=== PATIENT | female | born 1995 | race Caucasian/White ===

== ENCOUNTER 2016-06-12 15:23 | Emergency (ER) | payer OTHER ==
[~2016-06-12] VITALS: Ht 170.2 cm; Wt 60.5 kg
[2016-06-12 15:28] VITALS: TEMP 98
[2016-06-12 17:40] LABS: BASO # 0.1 (0.0-0.2); BASO % 0.4 % (0.0-2.0); GRAN # 20.2 (1.4-6.5); GRAN % 88.1 % (42.2-75.2); HEMOGLOBIN 12.5 g/dl (12.5-16.0); LYMPH # 1.2 (1.2-3.4); MEAN CELL VOLUME 88 fl (80.0-100.0); MEAN CORPUSCULAR HEMOGLOBIN 30 pg (27.0-31.0); MEAN CORPUSCULAR HGB CONC 34 g/dl (33.0-37.0); MONO # 1.3 (0.1-0.6); MONO % 5.7 % (1.7-9.3); PLATELET COUNT 357 K/mm3 (130-400); RED BLOOD COUNT 4.12 M/mm3 (4.10-5.30)
[2016-06-12 17:44] LABS: HEMATOCRIT 36.4 % (37.0-47.0)
[2016-06-12 17:52] LABS: ADJUSTED CALCIUM 9.5 mg/dL (8.4-10.2); ALBUMIN 4.3 gm/dL (3.5-5.0); BILIRUBIN,TOTAL 1.8 mg/dL (0.0-1.0); CALCIUM 9.7 mg/dL (8.4-10.2); CREATININE, serum 1.06 mg/dL (0.52-1.25); POTASSIUM 3.6 mmol/L (3.4-5.0)
[2016-06-12 19:51] LABS: PH 6 (5-8); SQUAMOUS EPITHELIAL None Seen /hpf; URINE APPEARANCE Hazy; URINE BACTERIA None Seen /hpf; URINE BILIRUBIN Negative (NEGATIVE); URINE BLOOD 3+ (NEGATIVE); URINE COLOR Yellow; URINE GLUCOSE Negative (NEGATIVE); URINE KETONE Trace (NEGATIVE); URINE RBC None Seen /hpf; URINE UROBILINOGEN Negative (NEGATIVE); URINE WBC 0-2 /hpf
[2016-06-12 20:09] VITALS: BP 131/76; PULSE 108
== END 2016-06-12 20:41 | disposition short-term general hospital (02) ==
LOC: COL.ER 15:23
PROVIDERS: Physician Assistant
DX: S37.062A Major laceration of left kidney, initial encounter (principal); S50.02XA Contusion of left elbow, initial encounter; V01 Pedestrian injured in collision with pedal cycle
CPT/HCPCS: J1170; J2405; J7030; Q9967

== ENCOUNTER → 2016-11-04 | Outpatient (CLI) | payer OTHER | LOC: COL.RAD 08:20 | DX: S37.05 Moderate laceration of kidney (principal); X58.XXXD Exposure to other specified factors, subsequent encounter | CPT/HCPCS: Q9967 ==